=== PATIENT | female | born 1970 | race Caucasian/White ===

== ENCOUNTER → 2021-04-24 | Outpatient (CLI) | payer BC ==
[~2021-04-24] MED LIST: CASIRIVIMAB/IMDEVIMAB 600/600mg in IV NS TV=50 ML IV ONE
[2021-04-24 14:50] VITALS: BP 112/71
[2021-04-24 15:50] VITALS: BP 115/68
--- NOTE | 2021-04-24 16:00 | NUR ---
Patient arrived to the unit room 103 via ambulation for outpatient infusion. Patient is alert and oriented. VS WNL. IV inserted. Infusion started and completed with no complications. Patient waited for approximately an hour post infusion. No reactions noted therefore the IV was removed and patient left the unit via ambulation.
== END | disposition home or self-care (01) ==
LOC: OPINF 14:26
PROVIDERS: ATTEND Family Medicine
DX: U07.1 COVID-19 (principal)
CPT/HCPCS: M0243; Q0244; 36592; 96365; Q0243